=== PATIENT | male | born 1990 | race African-American/Black ===

== ENCOUNTER 2023-10-31 15:22 | Emergency (ER) | payer SELFPAY ==
[~2023-10-31] VITALS: Ht 177.8 cm; Wt 100.0 kg
[2023-10-31 15:27] VITALS: TEMP 98.3; O2SAT 98
[2023-10-31] MEDS: SODIUM CHLORIDE 0.9% 1,000 ML IV ONE (16:08)
[2023-10-31 16:09] LABS: BASOPHILS % 3.3 % (0.0-2.0); DIFFERENTIAL COMMENT 0; EOSINOPHILS % 0.6 % (0.0-5.0); HEMATOCRIT. 37.4 % (42.0-52.0); HEMOGLOBIN. 12.9 g/dL (14.0-18.0); LYMPHOCYTES % 35.1 % (20.0-50.0); MEAN CORPUSCULAR HEMOGLOBIN 35.4 pg (28.0-32.0); MEAN CORPUSCULAR HGB CONC 34.6 g/dL (31.0-37.0); MEAN CORPUSCULAR VOLUME 102.4 fL (80.0-94.0); MONOCYTES % 7.5 % (2.0-8.0); NEUTROPHILS % 53.5 % (40.0-76.0); PLATELET 283 x1000/uL (130-400); RED BLOOD CELL COUNT 3.65 mill/uL (4.7-6.1); RED CELL DISTRIBUTION WIDTH 15.6 % (11.6-14.6); WHITE BLOOD COUNT 5.1 x1000/uL (4.5-11.0)
[2023-10-31 16:34] LABS: ALANINE AMINOTRANSFERASE 131 IU/L (10-49); ALBUMIN 3.6 g/dL (3.2-4.8); ASPARTATE AMINOTRANSFERASE 301 IU/L (<34); BILIRUBIN TOTAL 0.5 mg/dL (0.1-1.0); CALCIUM 7.6 mg/dL (8.7-10.4); CARBON DIOXIDE 29 mEq/L (21-32); CHLORIDE 106 mEq/L (98-107); CREATININE 0.7 mg/dL (0.6-1.3); GLUCOSE 116 mg/dL (70-105); PROTEIN TOTAL 6.5 g/dL (6.0-8.3); SODIUM 145 mEq/L (136-145); UREA NITROGEN BLOOD 10 mg/dL (9-23)
[2023-10-31 16:37] LABS: ETHANOL BLOOD 402 mg/dL (<10); POTASSIUM 2.7 mEq/L (3.5-5.1)
[2023-10-31 17:21] VITALS: BP 114/72; PULSE 113; RESP 14
[2023-10-31] MEDS ORDERED: POTASSIUM CHLORIDE 20MEQ/PACKET PO ONE (18:15)
[2023-10-31] MEDS ORDERED: CHLORDIAZEPOXIDE 25MG CAPSULE PO ONE (18:15)
[2023-10-31 18:34] LABS: *AMPHETAMINES SCREEN URINE NEGATIVE (NEGATIVE); *BARBITURATES SCREEN URINE NEGATIVE (NEGATIVE); *BENZODIAZEPINES SCREEN URINE NEGATIVE (NEGATIVE); *COCAINE SCREEN URINE NEGATIVE (NEGATIVE); CANNABINOID URINE SCREEN NEGATIVE (NEGATIVE); ECSTASY MDMA SCREEN URINE NEGATIVE (NEGATIVE); METHADONE URINE SCREEN Neg (NEGATIVE); OPIATES URINE SCREEN NEGATIVE (NEGATIVE); PHENCYCLIDINE URINE SCREEN PRESUMTIVE POSITIVE (NEGATIVE)
== END 2023-10-31 19:23 | disposition home or self-care (01) ==
LOC: ER 15:32
DX: F10.129 Alcohol abuse with intoxication, unspecified (principal); Y90.8 Blood alcohol level of 240 mg/100 ml or more
CPT/HCPCS: 80053; 80305; 80320; 85025; 36415; 96360; 99283; J7030; Z7610; G0480